=== PATIENT | female | born 1985 | race Caucasian/White ===

== ENCOUNTER 2022-04-20 00:12 | Emergency (ER) | payer OTHER ==
[~2022-04-20] VITALS: Ht 152.4 cm; Wt 90.7 kg
[2022-04-20 00:30] VITALS: BP_SYST 148
--- NOTE | 2022-04-20 00:34 | NUR ---
Patient to ER bed 4 to gown for evaluation. Side rails up. Report given to Dione OLMOS(beatrice).
[2022-04-20 00:35] VITALS: BP_SYST 151
--- NOTE | 2022-04-20 01:03 | NUR ---
Dr. Patricio at bedside.
[2022-04-20 01:08] LABS: HEMOGLOBIN 12.8 g/dL (12.0-16.0); MONOCYTES # (AUTO) 0.5 K/uL (0.0-1.0); MONOCYTES % (AUTO) 6.8 % (1.7-9.3); RED CELL DISTRIBUTION WIDTH 13.8 % (9.0-15.0)
[2022-04-20 01:12] LABS: BASOPHILS % (AUTO) 0.7 % (0.0-2.0); EOSINOPHILS # (AUTO) 0.5 K/uL (0.0-0.4); EOSINOPHILS % (AUTO) 7.7 % (0.0-4.0); HEMATOCRIT 38.6 % (36-48); LYMPHOCYTES # (AUTO) 2.2 K/uL (1.0-5.5); LYMPHOCYTES % (AUTO) 33.1 % (20.5-51.5); MEAN CORPUSCULAR HEMOGLOBIN 28 pg (27-31); MEAN CORPUSCULAR HGB CONC 33 % (32-36); MEAN CORPUSCULAR VOLUME 83 fL (79.0-98.0); NEUTROPHILS # (AUTO) 3.5 K/uL (1.8-7.7); NEUTROPHILS % (AUTO) 51.7 % (40.0-70.0); PLATELET COUNT (AUTO) 233 K/uL (130-430); RED BLOOD CELL COUNT(AUTO) 4.65 MIL/uL (4.2-6.2); WHITE BLOOD COUNT (AUTO) 6.7 K/uL (4.8-10.8)
[2022-04-20 01:13] LABS: BILIRUBIN,URINE NEGATIVE (NEGATIVE); BLOOD, URINE 2+ (NEGATIVE); CLARITY/URINE CLEAR (CLEAR); COLOR,URINE YELLOW (YELLOW); GLUCOSE,URINE NEGATIVE (NEGATIVE); KETONES,URINE NEGATIVE (NEGATIVE); LEUKOCYTE ESTERASE ,URINE 1+ (NEGATIVE); NITRITE, URINE NEGATIVE (NEGATIVE); PH,URINE 6.5 (5.0-8.0); PROTEIN URINE NEGATIVE (NEGATIVE); UROBILINOGEN,URINE 0.2 (0.2-1.0)
[2022-04-20] MEDS ORDERED: ONDANSETRON HCL 4 MG/2 ML VIAL IVP ONE ×2 (01:15)
[2022-04-20] MEDS ORDERED: NACL 0.9% 1,000 ML IV ONE ×2 (01:15→03:30)
[2022-04-20] MEDS ORDERED: KETOROLAC TROMETHAMINE 30 MG VIAL IVP ONE (01:15)
[2022-04-20 01:19] LABS: CALCIUM 7.8 mg/dL (8.4-11.0); CREATININE 0.82 mg/dL (0.55-1.30); POTASSIUM 3.8 mmol/L (3.5-5.1)
[2022-04-20 01:24] LABS: ALBUMIN 3.3 g/dL (3.4-4.8); TOTAL BILIRUBIN 0.1 mg/dL (0.0-1.0)
[2022-04-20 01:29] LABS: BACTERIA,URINE FEW /HPF (None Seen); RBC,URINE 0-3 /HPF (0-3)
[2022-04-20] MEDS ORDERED: MORPHINE 4 MG INJ. 4 MG/ML VIAL IVP ONE (01:45)
[2022-04-20] MEDS ORDERED: cefTRIAXone 1 GM in D5W 50 ML IV ONE (01:45)
--- NOTE | 2022-04-20 02:00 | NUR ---
# 22 gauge angiocath placed to LEFT AC. Use of asceptic technique. Opsite placed over site. Blood return noted. Blood for lab drawn from site. Flushed with 10 cc of normal saline. No evidence of infiltration noted. Patient tolerated well.
[2022-04-20] MEDS ORDERED: cefTRIAXone 1 GM VIAL ONE (02:03)
--- NOTE | 2022-04-20 02:24 | NUR ---
7387- TO XRAY VIA [facility]
--- NOTE | 2022-04-20 02:55 | NUR ---
0245- RETURN FRO XRAY WITH TECH, VU=NAHEED OVALLE. AT BEDSIDE. NO C/O NAUSEA AT THIS TIME
[2022-04-20] MEDS ORDERED: TRAM50TA2 PO (04:50)
[2022-04-20] MEDS ORDERED: CEFU250T85 PO (04:50)
[2022-04-20] MEDS ORDERED: ONDA-8 TL (04:50)
[2022-04-20 05:12] VITALS: BP_SYST 166
--- NOTE | 2022-04-20 05:12 | NUR ---
Patient given written and verbal discharge instructions and verbalizes understanding. ER Dr. Patricio discussed with patient the results and treatment provided. Patient in stable condition. ID arm band removed. IV catheter removed intact and dressing applied, no active bleeding. Rx of ceftin, zofran, and ultram given. Patient educated on pain management and to follow up with PMD. Pain Scale 3. Opportunity for questions provided and answered. Medication side effect fact sheet provided.
== END 2022-04-20 05:12 | disposition home or self-care (01) ==
LOC: SED 00:12
DX: N39.0 Urinary tract infection, site not specified (principal); R19.00 Intra-abdominal and pelvic swelling, mass and lump, unspecified site; I10 Essential (primary) hypertension; Z79.899 Other long term (current) drug therapy
CPT/HCPCS: 36415; 74176; 76376; 80053; 81000; 81025; 83605; 85025; 87040; 87086; 96365; 96375; 99284; J0696; J1885; J2270; J2405